=== PATIENT | female | born 1985 | race Caucasian/White ===

== ENCOUNTER → 2017-09-03 09:57 | Outpatient (CLI) | payer MEDICAID, SELFPAY ==
--- NOTE | 2017-09-03 09:57 | DT_ITS ---
This patient was seen during an EMR downtime August 29, 2017 - September 05, 2017. This patient may have a combination of paper and electronic documentation or all paper documentation. All documentation is viewable within the e-chart portion of [employer] for each patient visit.
== END ==
PROVIDERS: Family Provider Family Medicine; PCP Family Medicine; Visit Provider Otolaryngology
DX: H92.10 Otorrhea, unspecified ear (principal)
CPT/HCPCS: 87070; 87075; 87077; 87186; 87205

== ENCOUNTER → 2019-01-18 | Outpatient (CLI) | payer MEDICAID, SELFPAY ==
[2016-01-24 19:29] VITALS: BMI 34.7
--- NOTE | 2019-01-18 09:55 | VDUE_ITS ---
Reason For Study: chronic kidney disease. N18.4, Z01.818 Right Arm Left Arm Right cephalic vein is compressible. Left cephalic vein is compressible. Cephalic Vein at the shoulder is too small to Cephalic Vein above the antecubital space is asses. too small to asses. Right Cephalic Vein mid bicep measures .11 Left Cephalic Vein below antecub measures .08 x .12 cm. x .09 cm. Right Cephalic Vein above antecub measures .1 Left Cephalic Vein in the forearm x .12 cm. measures .10 x .12 cm. Right Cephalic Vein below antecub Left Cephalic Vein at the wrist measures .07 measures .25 x .27 cm. x .10 cm. Right Cephalic Vein in the forearm Left basilic vein is compressible. measures .19 x .18 cm. Basilic vein at bicep measures .25 x .25 cm. Right Cephalic Vein at the wrist measures .15 Basilic vein above antecub measures .30 x .31 x .17 cm. cm. Right basilic vein is compressible. Basilic vein below antecub measures .18 x .20 Right Basilic Vein mid bicep measures .23 cm. x .23 cm. Basilic vein in the forearm measures .12 Right Basilic Vein above antecub measures .25 x .12 cm. x .29 cm. Basilic vein at the wrist measures .1 x .11 Right Basilic Vein below antecub measures .14 cm. x .15 cm. Brachial artery .26 x .23 cm. Right Basilic Vein in the forearm Brachial artery 99.8 cm/s. measures .22 x .21 cm. Radial artery .13 x .13 cm. Right Basilic Vein at the wrist measures .12 Radial artery 50.3 cm/s. x .11 cm. Brachial artery .31 x .29 cm. Brachial artery 81.6 cm/s. Radial artery .13 x .14 cm. Radial artery 51.6 cm/s. Interpretation Summary Diminutive bilateral upper extremity cephalic veins. Borderline/small bilateral upper arm basilic veins Patent, normal diameter and flow bilateral brachial arteries Diminutive bilateral radial arteries. Ordering Physician: CONOR ELIZABETH Referring Physician: [facility] Doctor, Out of Performed By: Redd Dunlap RVT ?
== END | disposition home or self-care (01) ==
LOC: CVS 09:48
PROVIDERS: Family Provider Family Medicine; PCP Family Medicine
DX: Z01.818 Encounter for other preprocedural examination (principal); N18.4 Chronic kidney disease, stage 4 (severe)
CPT/HCPCS: 93970

== ENCOUNTER 2019-02-16 07:43 | Day surgery (SDC) | payer MEDICAID, SELFPAY ==
--- NOTE | 2019-01-31 01:51 | HP_ITS ---
Intake Vital Signs 01/31/19 Body Mass Index (BMI) 34.7 01/31/19 Height 5 ft 2 in 01/31/19 Weight: 190 lb 01/31/19 Body Mass Index (BMI) 34.7 01/31/19 Blood Pressure 125/85 H 01/31/19 Blood Pressure Location Lt brachial 01/31/19 Blood Pressure Position Sitting 01/31/19 Respiratory Rate 16 Intake Visit Reasons: Dialysis Access [facility] 01/18 Production Scheduler Required: No Is patient in pain?: No Allergies ibuprofen [From Motrin] Adverse Reaction (Verified 01/31/19 13:21) Other Medications lisinopril 40 mg tablet 40 mg PO DAILY 01/31/19 [History Confirmed 01/31/19] [facility] Medical History Depression (Acute) CKD (chronic kidney disease) (Chronic) HTN (hypertension) (Chronic) Surgical History S/P section (Acute) S/P wisdom tooth extraction (Acute) Status post biopsy of kidney (Acute) Family History Mother CAD (coronary artery disease) Father CAD (coronary artery disease) Social History (Updated 01/31/19 @ 13:51 by Hollis Fleming MD) Smoking Status: Never smoker alcohol intake: never HPI HPI HPI: LILIBETH JANE, is a 33 F who presents to the office today for HPI HPI Surgical H&P: Yes HPI: LILIBETH JANE, is a 33 F who presents to the office today for surgical consultation regarding arteriovenous fistula creation. The patient is referred by her train examiner and a written copy of my surgical health consult will be returned to him. The patient is right arm dominant. She had bilateral upper extremity vein mapping performed at the [facility] on January 18, 2019. Her cephalic veins are diminutive. She has borderline bilateral upper arm basilic veins. She has not had any previous catheters or fistulas. She is not currently on hemodialysis. She has biopsy- proven IgA nephropathy. Her GFR is 18 mm/min with a creatinine of 3. [facility] [address] [place] [address] Saphenous Vein Mapping, Bilat 10/24/19 1104 MR#: [id number] Name:LILIBETH JANE [facility] #:[id number] : 1985 33From:Hollis Fleming MD Attending Dr: CONOR HENNESSYStatus: REG CLI Ordering Dr: CONOR HENNESSYDate: 01/18/19 Location:CVSSex:FC Admitted: Reason For Study: chronic kidney disease. N18.4, Z01.818 Right Arm Left Arm Right cephalic vein is compressible. Left cephalic vein is compressible. Cephalic Vein at the shoulder is too small to Cephalic Vein above the antecubital space is asses. too small to asses. Right Cephalic Vein mid bicep measures .11 Left Cephalic Vein below antecub measures .08 x .12 cm. x .09 cm. Right Cephalic Vein above antecub measures .1 Left Cephalic Vein in the forearm x .12 cm. measures .10 x .12 cm. Right Cephalic Vein below antecub Left Cephalic Vein at the wrist measures .07 measures .25 x .27 cm. x .10 cm. Right Cephalic Vein in the forearm Left basilic vein is compressible. measures .19 x .18 cm. Basilic vein at bicep measures .25 x .25 cm. Right Cephalic Vein at the wrist measures .15 Basilic vein above antecub measures .30 x .31 x .17 cm. cm. Right basilic vein is compressible. Basilic vein below antecub measures .18 x .20 Right Basilic Vein mid bicep measures .23 cm. x .23 cm. Basilic vein in the forearm measures .12 Right Basilic Vein above antecub measures .25 x .12 cm. x .29 cm. Basilic vein at the wrist measures .1 x .11 Right Basilic Vein below antecub measures .14 cm. x .15 cm. Brachial artery .26 x .23 cm. Right Basilic Vein in the forearm Brachial artery 99.8 cm/s. measures .22 x .21 cm. Radial artery .13 x .13 cm. Right Basilic Vein at the wrist measures .12 Radial artery 50.3 cm/s. x .11 cm. Brachial artery .31 x .29 cm. Brachial artery 81.6 cm/s. Radial artery .13 x .14 cm. Radial artery 51.6 cm/s. Interpretation Summary Diminutive bilateral upper extremity cephalic veins. Borderline/small bilateral upper arm basilic veins Patent, normal diameter and flow bilateral brachial arteries Diminutive bilateral radial arteries. Ordering Physician: CONOR HENNESSY Referring Physician: [facility] , Out of Performed By: Redd Dunlap, RVT ? 01/18/19 1444 Date Hollis Fleming MD CC: CONOR HENNESSY; Fer Lazaro MD ~ Date Dictated:01/18/191103 Date Transcribed: 01/18/191443 Earth Science Faculty Member: PRAVEENA General General: Yes fatigue; no weight change, appetite, colon cancer, breast cancer or weakness HEENT HEENT: No difficulty swallowing, eye injury, eye surgery, swollen glands or hoarseness Endo Endocrine: No thyroid disease, diabetes mellitus, thyroid cancer, Hair loss, heat intolerance or cold intolerance Skin Skin: No rash or changing moles Breast Breast: No left breast lump, right breast lump, nipple discharge, breast pain, abnormal mammogram, abnormal US or breast enlargement Musc Musculoskeletal: No back problems, arthritis, rheumatoid arthritis, gout or joint pain Cardio Cardiovascular: Yes high blood pressure; no murmur, pacemaker, heart disease, atrial fibrillation, heart attack, heart stent, palpitations, shortness of breat with exertion or chest pain Psych Psychiatric: Yes depression; no anxiety or hearing voices Resp Respiratory: No shortness of breath, No sleep apnea, No cough, No COPD, No asthma, No emphysema, No wheezing Gastro Gastrointestinal: No abdominal pain, No nausea or vomiting, No diarrhea, No constipation, No blood in stool, No acid reflux, No hemorrhoids, No ulcers, No gallbladder problem, No black,tarry stools Juan Hematologic: No blood thinners, No blood disorders, No bleeding, No anemia, No blood clots Neuro Neurologic: No system reviewed and no additional complaints, except as docu, No as per HPI, No abnormal walking, No abnormal hearing, No abnormal movements, No abnormal speech, No behavioral changes, No burning sensations, No confusion, No seizure-like activity, No unsteadiness, No dizziness, No localized weakness, No frequent falls, No headache(s), No lack of coordination, No loss of vision, No memory loss, No numbness, No other visual disturbances, No radiating pain, No restless legs, No sensory deficit, No fainting, No tingling, No tremor(s), No weakness, No other Exam Const General: cooperative, comfortable, no acute distress Nutritional Appearance: obese Orientation: alert, awake [facility] Head: normal to inspection Chest Breast Palpation: No nipple discharge Resp Effort & Inspection: normal respiratory effort Auscultation: clear to auscultation bilaterally Cardio Rate: regular rate Rhythm: regular rhythm Heart Sounds: no murmurs GI Other: Overweight, cannot detect any internal organs Skin General: no rashes or lesions noted Neuro Cognition: normal cognition Extrem General: no calf tenderness bilaterally Other: Left upper extremity be inspected with ultrasound. The left upper arm basilic vein appears to be patent and compressible. It does branch to more diminutive level at the antecubital space. The left antecubital brachial artery is palpable. Patient is overweight with significant soft tissue fullness of the left upper extremity Psych Affect: normal affect Assessment & Plan Problems 1. Chronic renal failure, stage 4 (severe) N18.4 Plan Stage IV chronic renal failure. Right arm dominant. IgA nephropathy. I proposed for the patient stage I left upper extremity brachial to basilic arteriovenous hemodialysis fistula creation. In detail I discussed the technique, benefits, risks, alternatives. The patient is very much aware that she will require a future second procedure for transposition. No guarantees of success have been offered. The patient is additionally aware that additional intervention may be required for maintenance. She has had an opportunity to ask and have questions answered. She would like to further discuss with her train examiner. We will tentatively schedule an operative date. I very much appreciate the kind opportunity of assisting with her surgical care. CC: Dr. Hennessy and Dr. Iveth Fleming M.D., F.A.C.S. Coding Level of Care Code 62807 Diagnoses Chronic renal failure, stage 4 (severe) N18.4 01/31/19 1351 <Electronically signed by Hollis machado MD> Date _ Hollis Fleming MD I have re-examined the patient. There are no clinical changes since date of exam.
[2019-01-31 13:22] VITALS: BMI 34.7
--- NOTE | 2019-02-16 07:58 | EKG12_ITS ---
Test Reason : PRE OP Blood Pressure : / mmHG Vent. Rate : 073 BPM Atrial Rate : 073 BPM P-R Int : 124 ms QRS Dur : 076 ms QT Int : 378 ms P-R-T Axes : 019 053 046 degrees QTc Int : 416 ms Normal sinus rhythm with sinus arrhythmia Normal ECG No previous ECGs available Confirmed by EDU BYRNE, MARIA L ([id number]), graphic editor OLENA CARPENTER ([id number]) on 02/19/2019 10:16:14 AM Referred By: Hollis Fleming Confirmed By:MARIA L SORENSEN MD
[2019-02-16 08:09] VITALS: BP 118/68; PULSE 82; RESP 16; TEMP 36.9; O2SAT 100; BMI 35.5
[2019-02-16] MEDS: 0.45% Normal Saline 1,000 ML 30 ML IV (08:30)
[2019-02-16 08:32] LABS: Hematocrit 35.7 % (37-47); Hemoglobin 11.6 g/dL (12.0-15.0); Mean Corp Hgb Conc 32.5 g/dL (32-36); Mean Corpuscular Hgb 29.2 pg (27.0-32.0); Mean Corpuscular Volume 89.9 fL (81-99); Mean Platelet Vol. 12.2 fl (6.2-12.0); Platelet Count 205 K/mm3 (150-450); RBC Distribution Width CV 12.7 % (11.6-14.6); RBC Distribution Width SD 41.9 fl (35.1-43.9); Red Blood Count 3.97 M/mm3 (4.2-5.4); White Blood Count 7.8 K/mm3 (4.4-11.0)
[2019-02-16 08:40] LABS: Anion Gap 8 (5-15); BUN 45 mg/dL (7-18); BUN/Creat Ratio 11.9 RATIO (10-20); Calcium,Total 8.5 mg/dL (8.5-10.1); Chloride 111 mmol/L (98-107); Creatinine, Serum 3.77 mg/dL (0.55-1.02); EST Glomerular Filtration Rate 15 mL/min (>60); Est Glom Filt Rate - Afr Amer 18 mL/min (>60); Estimated Creatinine Clearance 16.79 ml/min; Glucose 90 mg/dL (74-106); Potassium 5.1 mmol/L (3.5-5.1); Sodium Level 141 mmol/L (136-145)
--- NOTE | 2019-02-16 09:22 | DCINST_ITS ---
Discharge Diet: Renal Diet Discharge Activity: May Not Drive - for 2-3 days or while taking narcotic pain medications., May Shower, May Take a Tub Bath - in 5 days. Lifting Restrictions: 5 pounds Keep extremity elevated above heart level: - - Keep arm elevated above the heart level for 3 days. Additional Activity Instructions:: Exercise hand vigorously with a stress ball. Call your doctor if your incision/area has: Continuous Slow Oozing, Sudden Increased Bleeding - apply pressure and call your doctor., Increased Pain/ Swelling, Increased Redness, Foul Smelling Discharge Call your doctor if you observe: Fever of 101 or Higher Suture Line Care: Avoid Pulling/Pushing, Avoid Pinching/Bending Cleanse incision/area with: Keep Dressing Clean & Dry Additional Dressing/Incision Instructions:: Change or remove dressing in one day. May protect with a gauze bandaid. Allergies/Adverse Reactions: Allergies aspirin Adverse Reaction (Verified 02/16/19 08:04) Other ibuprofen [From Motrin] Adverse Reaction (Verified 02/16/19 08:04) Other UNABLE TO TAKE D/T KIDNEY DISEASE NSAIDS (Non-Steroidal Anti-Inflamma Adverse Reaction (Verified 02/16/19 08:04) Other Medications to take at Discharge lisinopril 40 mg tablet 40 mg PO DAILY 01/31/19 Calcitriol 0.25 mcg PO MOWEFR 02/14/19 Hydrocodone Bitart/Apap 5-325 [[employer] 5MG-325MG] 1 tab PO Q6H PRN PRN 2 Days #6 tab 02/16/19 The following prescriptions were given: Hydrocodone Bitart/Apap 5-325 [[employer] 5MG-325MG] 1 tab PO Q6H PRN PRN 2 Days #6 tab PRN Reason: Pain Transmission Status: Sent to [facility] Primary Care Physician: Fer Lazaro MD [Primary Care Provider] - Test Results: Test results from this visit will be discussed in further detail at your follow- up appointment, if applicable. Please Follow Up With: Hollis Fleming MD - [phone] When: Call to make an appointment for suture removal and follow up in 1 week.
[2019-02-16] MEDS: Heparin Injection (Vial) 5,000 UNIT/ML VIAL 5000 UNIT (09:45)
--- NOTE | 2019-02-16 10:42 | PCM.OPRPT ---
Problem List (1) Chronic renal failure, stage 4 (severe) Status: Chronic Report of Operation Date of Procedure: 02/16/19 Pre-Operative Diagnosis: Stage IV chronic renal insufficiency Post-Operative Diagnosis: Same Surgery/Procedure Performed:: Stage I left upper extremity basilic vein to brachial artery arteriovenous hemodialysis fistula creation Description of Surgical Findings:: Timeout and informed consent was obtained. 33-year-old female taken out from placement table underwent initially mapped anesthesia however the patient reacted violently to a 30-gauge needle prick. For that reason we had to undergo general anesthesia. Clean procedure. We additionally used 1% lidocaine mixed 50-50 with 0.5% Marcaine. A 30 cc was used. Ultrasound had been performed preoperatively identifying the basilic vein oblique incision was created tedious blunt and sharp dissection performed the patient is significantly and identified a branch of the basilic vein was challenging. I was eventually able to do this mobilized the vein marked it secured it distally with a Hemoclip was irrigated and noted to be rather diminutive. Sharp and blunt dissection used to identify it was felt to be the brachial artery however this may be a high takeoff of the radial artery. As this was only go to be utilized for stage I I elected to pursue. The patient received 9000 units of heparin based upon body habitus. Peripheral vascular clamps were placed on the artery and 11 blade was used to make an arteriotomy which was extended with Ivory scissors up. The vein was spatulated to length and a end-to-side anastomosis created with running 7-0 Prolene. There was good hemostasis at the completion. There was a good audible Doppler bruit within the fistula at the completion. It could appear to have good positional lie and that it would assist with maturation of the basilic vein. The hand was viable there is still a palpable distal pulse. The wound was closed in layers of deep layer of interrupted 3-0 Vicryl and then a more superficial layer running septic or 4 Monocryl. Steri-Strips Telfa tape dressings applied. Sponge and instrument and needle counts were reported the surgeon be correct. Blood loss minimal. Specimens none. Drains none. Blood loss minimal. Hollis Fleming M.D., F.A.C.S. Type of Anesthesia:: General Anesthesiologist: Rufus Duggan
[2019-02-16] MEDS: Bupivacaine Mpf 0.5% 30 ML VIAL (10:53)
[2019-02-16 11:17] VITALS: BP 118/68; BP 145/82; PULSE 104; RESP 14; TEMP 36.8; O2SAT 100
[2019-02-16 11:30] VITALS: BP 118/68; BP 146/85; PULSE 87; RESP 18; O2SAT 100
[2019-02-16 11:45] VITALS: BP 118/68; BP 144/81; PULSE 84; RESP 18; O2SAT 98
[2019-02-16 11:57] VITALS: BP 118/68; BP 144/80; PULSE 85; RESP 18; TEMP 36.6; O2SAT 99
[2019-02-16 12:33] VITALS: BP 118/68
== END 2019-02-16 12:38 | disposition home or self-care (01) ==
LOC: SDC 07:44 → AC 07:45
PROVIDERS: Family Provider Family Medicine; PCP Family Medicine; Referring Provider Surgery; Visit Provider Surgery
PROC: (CPT 36821; principal; 2019-02-16 09:30)
DX: I12.9 Hypertensive chronic kidney disease with stage 1 through stage 4 chronic kidney disease, or unspecified chronic kidney disease (principal); N18.4 Chronic kidney disease, stage 4 (severe); F32.9 Major depressive disorder, single episode, unspecified; Z79.899 Other long term (current) drug therapy
CPT/HCPCS: 36821; 36415; 80048; 85027; 93005; J7120

== ENCOUNTER 2019-04-06 05:29 | Day surgery (SDC) | payer MEDICAID, SELFPAY ==
--- NOTE | 2019-03-13 03:26 | HP_ITS ---
Intake Vital Signs 03/13/19 Height 5 ft 2 in 03/13/19 Weight: 190 lb 03/13/19 BMI 34.7 03/13/19 BP 125/82 H 03/13/19 Blood Pressure Location Rt brachial 03/13/19 Position Sitting 03/13/19 Respiration 16 03/13/19 Pulse 87 03/13/19 Pulse Source Monitor 03/13/19 Temp 98.4 F 03/13/19 Temp Source Oral 03/13/19 Pulse Oximetry (%) 100 03/13/19 Oxygen Delivery Method room air Intake Visit Reasons: F/U FISTULA PLACEMENT 02/16/2019 Advanced Solutions Architect Required: No Is patient in pain?: No Allergies aspirin Adverse Reaction (Verified 03/13/19 13:21) Other ibuprofen [From Motrin] Adverse Reaction (Verified 03/13/19 13:21) Other NSAIDS (Non-Steroidal Anti-Inflamma Adverse Reaction (Verified 03/13/19 13:21) Other Medications lisinopril 40 mg tablet 40 mg PO DAILY 01/31/19 [History Confirmed 03/13/19] Calcitriol 0.25 mcg PO MOWEFR 02/14/19 [History Confirmed 03/13/19] sodium bicarbonate 650 mg tablet 650 mg PO DAILY tab 03/13/19 [History Confirmed 03/13/19] PFSH Social History (Updated 03/13/19 @ 15:26 by Anay Sanford PA-C) Smoking Status: Never smoker second hand exposure: No alcohol intake: never substance use type: does not use caffeine: No what type of physical activity do you participate in: none frequency: does not exercise HPI HPI HPI: LILIBETH JANE, is a 33 F who presents to the office today for HPI HPI Surgical H&P: Yes HPI: Patient is a 33 y/o F I am following for stage IV renal failure. Dr. Fleming performed a stage I left upper extremity basilic vein to brachial artery arteriovenous hemodialysis fistula creation on 02/16/19. Patient tolerated the procedure well. She denies incisional pain/discomfort. She is not currently on dialysis. She denies recent hospitalizations or illnesses. Patient notes slightly more pain in the fistula arm last week. She also notes she has been in the process of moving and was doing more lifting. ROS General General: Yes fatigue; no weight change, appetite, colon cancer, breast cancer or weakness HEENT HEENT: No difficulty swallowing, eye injury, eye surgery, swollen glands or hoarseness Endo Endocrine: No thyroid disease, diabetes mellitus, thyroid cancer, Hair loss, heat intolerance or cold intolerance Skin Skin: No rash or changing moles Breast Breast: No left breast lump, right breast lump, nipple discharge, breast pain, abnormal mammogram, abnormal US or breast enlargement Musc Musculoskeletal: No back problems, arthritis, rheumatoid arthritis, gout or joint pain Cardio Cardiovascular: Yes high blood pressure; no murmur, pacemaker, heart disease, atrial fibrillation, heart attack, heart stent, palpitations, shortness of breat with exertion or chest pain Psych Psychiatric: Yes depression; no anxiety or hearing voices Resp Respiratory: No shortness of breath, No sleep apnea, No cough, No COPD, No asthma, No emphysema, No wheezing Gastro Gastrointestinal: No abdominal pain, No nausea or vomiting, No diarrhea, No constipation, No blood in stool, No acid reflux, No hemorrhoids, No ulcers, No gallbladder problem, No black,tarry stools Juan Hematologic: No blood thinners, No blood disorders, No bleeding, No anemia, No blood clots Neuro Neurologic: No weakness Exam Const General: cooperative, healthy appearing, comfortable, no acute distress HENMT Head: normal to inspection Eyes General: appearance normal, both eyes and all related structures Neck Neck: normal visual inspection Neck mass: No Chest Breast Palpation: No nipple discharge Resp Effort & Inspection: normal respiratory effort Auscultation: clear to auscultation bilaterally Cardio Rate: regular rate Rhythm: regular rhythm Heart Sounds: no murmurs GI Inspection: normal to inspection Palpation: soft Auscultation: normal bowel sounds Skin General: no rashes or lesions noted Neuro General: no focal motor deficits, CN's II-XI intact bilaterally Extrem General: normal to inspection Other: Left upper extremity- incision c/d/i. Fistula with good pulse. Distant bruit and thrill Psych Appearance: grossly normal Affect: normal affect Assessment & Plan Problems 1. Chronic renal failure, stage 4 (severe) N18.[address] Fleming will plan to perform a stage II transposition of the left upper extremity fistula. Procedure details, risks and benefits have been explained. Patient has had the opportunity to ask and have questions answered. Patient verbally understands and agrees with the plan. Coding Level of Care Code Global Post Op Diagnoses Chronic renal failure, stage 4 (severe) N18.4 03/13/19 1526 <Electronically signed by Anay stearns PA-C> Date _ Anay Sanford PA-C
[2019-03-13 13:21] VITALS: BMI 35.5
[2019-04-06 05:51] VITALS: BP 136/72; PULSE 72; RESP 16; TEMP 36.8; O2SAT 100; BMI 35.1
[2019-04-06] MEDS: 0.45% Normal Saline 1,000 ML 30 ML IV (06:00)
--- NOTE | 2019-04-06 06:10 | HP.PCM_ITS ---
Problem List (1) Chronic renal failure, stage 4 (severe) Status: Chronic History and Physical Date of Admission: 04/06/19 Intake Visit Reasons: F/U FISTULA PLACEMENT 02/16/2019 Instructor Physical Required: No Is patient in pain?: No Allergies aspirin Adverse Reaction (Verified 03/13/19 13:21) Other ibuprofen [From Motrin] Adverse Reaction (Verified 03/13/19 13:21) Other NSAIDS (Non-Steroidal Anti-Inflamma Adverse Reaction (Verified 03/13/19 13:21) Other Medications lisinopril 40 mg tablet 40 mg PO DAILY 01/31/19 [History Confirmed 03/13/19] Calcitriol 0.25 mcg PO MOWEFR 02/14/19 [History Confirmed 03/13/19] sodium bicarbonate 650 mg tablet 650 mg PO DAILY tab 03/13/19 [History Confirmed 03/13/19] PFSH Social History (Updated 03/13/19 @ 15:26 by Anay Sanford PA-C) Smoking Status: Never smoker second hand exposure: No alcohol intake: never substance use type: does not use caffeine: No what type of physical activity do you participate in: none frequency: does not exercise HPI HPI HPI: LILIBETH JANE, is a 33 F who presents to the office today for HPI HPI Surgical H&P: Yes HPI: Patient is a 33 y/o F I am following for stage IV renal failure. Dr. Fleming performed a stage I left upper extremity basilic vein to brachial artery arteriovenous hemodialysis fistula creation on 02/16/19. Patient tolerated the procedure well. She denies incisional pain/discomfort. She is not currently on dialysis. She denies recent hospitalizations or illnesses. Patient notes slightly more pain in the fistula arm last week. She also notes she has been in the process of moving and was doing more lifting. ROS General General: Yes fatigue; no weight change, appetite, colon cancer, breast cancer or weakness HEENT HEENT: No difficulty swallowing, eye injury, eye surgery, swollen glands or hoarseness Endo Endocrine: No thyroid disease, diabetes mellitus, thyroid cancer, Hair loss, heat intolerance or cold intolerance Skin Skin: No rash or changing moles Breast Breast: No left breast lump, right breast lump, nipple discharge, breast pain, abnormal mammogram, abnormal US or breast enlargement Musc Musculoskeletal: No back problems, arthritis, rheumatoid arthritis, gout or joint pain Cardio Cardiovascular: Yes high blood pressure; no murmur, pacemaker, heart disease, atrial fibrillation, heart attack, heart stent, palpitations, shortness of breat with exertion or chest pain Psych Psychiatric: Yes depression; no anxiety or hearing voices Resp Respiratory: No shortness of breath, No sleep apnea, No cough, No COPD, No asthma, No emphysema, No wheezing Gastro Gastrointestinal: No abdominal pain, No nausea or vomiting, No diarrhea, No constipation, No blood in stool, No acid reflux, No hemorrhoids, No ulcers, No gallbladder problem, No black,tarry stools Juan Hematologic: No blood thinners, No blood disorders, No bleeding, No anemia, No blood clots Neuro Neurologic: No weakness Exam Const General: cooperative, healthy appearing, comfortable, no acute distress HENMT Head: normal to inspection Eyes General: appearance normal, both eyes and all related structures Neck Neck: normal visual inspection Neck mass: No Chest Breast Palpation: No nipple discharge Resp Effort & Inspection: normal respiratory effort Auscultation: clear to auscultation bilaterally Cardio Rate: regular rate Rhythm: regular rhythm Heart Sounds: no murmurs GI Inspection: normal to inspection Palpation: soft Auscultation: normal bowel sounds Skin General: no rashes or lesions noted Neuro General: no focal motor deficits, CN's II-XI intact bilaterally Extrem General: normal to inspection Other: Left upper extremity- incision c/d/i. Fistula with good pulse. Distant bruit and thrill Psych Appearance: grossly normal Affect: normal affect Assessment & Plan Problems 1. Chronic renal failure, stage 4 (severe) N18.[address] Fleming will plan to perform a stage II transposition of the left upper extremity fistula. Procedure details, risks and benefits have been explained. Patient has had the opportunity to ask and have questions answered. Patient verbally understands and agrees with the plan. Coding Level of Care Code Global Post Op Diagnoses Chronic renal failure, stage 4 (severe) N18.4 03/13/19 1526 <Electronically signed by Anay stearns PA-C> Date _ Anay Sanford PA-C Cosigner Signature: Date (if applicable) CC: Fer Lazaro MD ~ I have re-examined the patient. There are no clinical changes since date of exam.
--- NOTE | 2019-04-06 07:14 | DCINST_ITS ---
Discharge Diet: Renal Diet Discharge Activity: May Not Drive - for 2-3 days or while taking narcotic pain medications., May Shower, May Take a Tub Bath - in 5 days. Lifting Restrictions: 5 pounds Keep extremity elevated above heart level: - - Keep arm elevated above the heart level for 3 days. Additional Activity Instructions:: Exercise hand vigorously with a stress ball. Call your doctor if your incision/area has: Continuous Slow Oozing, Sudden Increased Bleeding - apply pressure and call your doctor., Increased Pain/ Swelling, Increased Redness, Foul Smelling Discharge Call your doctor if you observe: Fever of 101 or Higher Suture Line Care: Avoid Pulling/Pushing, Avoid Pinching/Bending Cleanse incision/area with: Keep Dressing Clean & Dry Additional Dressing/Incision Instructions:: Elevate your left upper extremity to limit swelling and for comfort. You may keep the left upper extremity clean dry and dressed for approximately 3 days. You may then undo the elastic wrap and fluffy gauze. There will be Steri-Strips supporting the incision. Allergies/Adverse Reactions: Allergies aspirin Adverse Reaction (Verified 04/06/19 05:49) Other ibuprofen [From Motrin] Adverse Reaction (Verified 04/06/19 05:49) Other UNABLE TO TAKE D/T KIDNEY DISEASE NSAIDS (Non-Steroidal Anti-Inflamma Adverse Reaction (Verified 04/06/19 05:49) Other Medications to take at Discharge lisinopril 40 mg tablet 40 mg PO DAILY 01/31/19 Calcitriol 0.25 mcg PO MOWEFR 02/14/19 sodium bicarbonate 650 mg tablet 650 mg PO DAILY tab 03/13/19 Primary Care Physician: Fer Lazaro MD [Primary Care Provider] - Test Results: Test results from this visit will be discussed in further detail at your follow- up appointment, if applicable. Please Follow Up With: Hollis Fleming MD - [phone] When: Call to make an appointment for suture removal and follow up in 1 week.
[2019-04-06] MEDS: Cefazolin 2 GM in 0.9% Normal Saline 100 ML IV (07:17)
[2019-04-06] MEDS: Heparin Injection (Vial) 5,000 UNIT/ML VIAL 5000 UNIT (10:00)
[2019-04-06] MEDS: Bupivacaine Mpf 0.5% 30 ML VIAL (10:00)
--- NOTE | 2019-04-06 10:22 | PCM.OPRPT ---
Problem List (1) Chronic renal failure, stage 4 (severe) Status: Chronic Report of Operation Date of Procedure: 04/06/19 Pre-Operative Diagnosis: Stage IV chronic renal insufficiency in need of arteriovenous dialysis access Post-Operative Diagnosis: Same Surgery/Procedure Performed:: Stage II transposition left upper extremity brachial to basilic AV fistula creation with Vascu-Guard bovine graft flow restrictor placement. Reference [id number]. PN number [id number]. Lot number [id number] Description of Surgical Findings:: Timeout and informed consent was obtained. 34-year-old female was taken the operating room placed upon the table. Ancef 2 g were given intravenously preoperatively. She underwent general anesthesia. The left upper extremity sterilely prepped draped. Ultrasound was used to map the course of the left upper arm basilic vein. A longitudinal incision was made. The patient was noted to be quite obese with very thick upper arm with a deeply placed basilic vein. Tedious dissection was required. I did inject 1% lidocaine mixed 50-50 with 0.5% Marcaine and throughout the procedure total 60 cc was used. The vein was carefully dissected free side branches were secured with 3-0 Vicryl ligatures and hemoclips were indicated I dissected all the way up to the shoulder area completely mobilized the vein. Where needed additional larger side branches were secured with 3-0 Vicryl suture ligatures. I marked the vein. Ligated distally with 3-0 Vicryl the vein had very large diameter. I then dissected the left upper arm this point found what was likely a high takeoff of a radial artery. Could not find her larger vessel. This was the most superficial which was good to be required for this fistula. This is in part demanded by the obesity of the upper arm. I made a subcutaneous tunnel tract the vein gave the patient 9000 and's of heparin. Peripheral vascular clamps were placed on the artery and a longitudinal arteriotomy was created with 11 blade in the skin of the [place] edges and the same side anastomosis created with a running 7-0 Prolene hemostasis was nicely intact there was excellent flow through the fistula in fact to good of flow inspection of the hand revealed that it was pink but I had absence now of radial and ulnar pulses so I then took a Vascu-Guard bovine graft shaped into a small rectangle wrapped around the origin of the fistula use 6-0 Prolene to restrict the fistula flow and by listening with Doppler at the wrist and inspecting the hand inspecting the fistula I was able to restrict the fistula to where I felt I had maintained flow in the fistula but adequate flow to the hand for viability. The patient received 20 mg of protamine reversal. The wound was closed with deep layers of interrupted 3-0 Vicryl and then skin edges proximal running septic or 4-0 Monocryl. Skin prep was applied Steri-Strips Telfa soft roll Darian wrap. Sponge and instrument and needle counts reported surgical correct. Blood loss 50 cc. She taught a procedure well to was taken to recovery room satisfactory edition no apparent complication. Specimens none. Drains none. Blood loss 50 cc. Hollis Fleming M.D., F.A.C.S. Type of Anesthesia:: General Anesthesiologist: Fitz Wilson
[2019-04-06 11:05] VITALS: BP 118/44; BP 136/72; PULSE 96; RESP 18; TEMP 36.6; O2SAT 96
[2019-04-06 11:15] VITALS: BP 121/67; BP 136/72; PULSE 89; RESP 18; O2SAT 97
[2019-04-06 11:30] VITALS: BP 121/62; BP 136/72; PULSE 97; RESP 16; O2SAT 96
[2019-04-06 11:45] VITALS: BP 110/62; BP 136/72; PULSE 82; RESP 16; TEMP 36.6; O2SAT 100
[2019-04-06 13:36] VITALS: BP 135/74; BP 136/72; PULSE 70; RESP 16; TEMP 36.3; O2SAT 95
== END 2019-04-06 13:58 | disposition home or self-care (01) ==
LOC: SDC 05:31 → AC 05:31
PROVIDERS: Family Provider Family Medicine; PCP Family Medicine; Referring Provider Surgery; Visit Provider Surgery
PROC: (CPT 36830; principal; 2019-04-06 07:00)
DX: I12.9 Hypertensive chronic kidney disease with stage 1 through stage 4 chronic kidney disease, or unspecified chronic kidney disease (principal); N18.4 Chronic kidney disease, stage 4 (severe); E66.9 Obesity, unspecified; Z68.35 Body mass index [BMI] 35.0-35.9, adult; Z79.899 Other long term (current) drug therapy
CPT/HCPCS: 01844; 36830

== ENCOUNTER → 2019-05-04 10:14 | Outpatient (CLI) | payer MEDICAID, SELFPAY ==
[2019-04-06 05:51] VITALS: BMI 35.1
--- NOTE | 2019-05-04 10:15 | AVDS_ITS ---
Reason For Study: Complication with dialysis graft LEFT Lt Inflow: 159/83 cm/s Lt Inflow: 1070 ml/min Lt Anast: 165/100 cm/s Lt Anast: 920.1 ml/min Lt Prox Graft: 198/109 cm/s Lt Prox Graft: 1156 ml/min Lt Mid Graft: 195/111 cm/s Lt Mid Graft: 1105 ml/min Lt Distal Graft: 103/56 cm/s Lt Distal Graft: 959.5 ml/min Lt Outflow: 111/75 cm/s Lt Outflow: 891.7 ml/min. Interpretation Summary High flow left upper extremity AV fistula with relative restriction consistent with known proximal fistula cuff. Volume flow Mid fistula 1105 ml/min Arterial velocity and flow not interogated distal to the fistula Ordering Physician: Anay Sanford Referring Physician: Fer Lazaro Performed By: Suellen Goldman RDCS, RVT
== END ==
PROVIDERS: PCP Family Medicine; Referring Provider Surgery; Visit Provider Surgery
DX: R09.89 Other specified symptoms and signs involving the circulatory and respiratory systems (principal)
CPT/HCPCS: 93990